=== PATIENT | male | born 1965 | race Two or more races ===

== ENCOUNTER 2025-11-07 23:51 | Emergency (ER) | payer BC, OTHER ==
[~2025-11-07] VITALS: Ht 177.8 cm; Wt 77.2 kg
--- NOTE | 2025-11-08 00:01 | ED.PDOC ---
History of Present Illness HPI Comments 60-year-old male who came to ER via EMS for flank pains. Patient does have history of kidney stones. States he has been experiencing left flank pain since yesterday the progressively worsened in the past hour, radiating to her left lower quadrant. Noted to have nausea and episodes of diarrhea. Denies any d ysuria gross hematuria Chief Complaint: Flank Pain Time Seen by MD: 00:01 Reviewed Notes: Nurses Notes Allergies: Coded Allergies: NO KNOWN ALLERGIES (Unverified , 11/08/25) Information Source: Patient, Emergency Med Personnel Mode of Arrival: EMS Past Medical History PAST MEDICAL HISTORY: Kidney Stones Surgical History: Denies all surgeries Family History Family History: Reviewed,noncontributory to illness Social History Smoker: Non-Smoker Alcohol: Denies ETOH Use Drugs: Denies Drug Use Lives In: Home Was a procedure done? Was a procedure done?: No Differential Dx Considerations may include: Urinary tract infection, kidney stones, musculoskeletal pain, X-Ray, Labs, Meds, VS Vital Signs Date Time Temp Pulse Resp B/P (MAP) Pulse Ox O2 Delivery O2 Flow Rate FiO2 11/08/25 04:13 98.1 3 18 153/94 (113) 99 98.1 11/08/25 04:13 73 18 153/94 11/08/25 03:07 98.6 103 16 136/93 (107) 98 98.6 11/08/25 01:25 68 18 189/104 11/08/25 00:52 98.1 58 28 189/104 (132) 100 98.1 11/07/25 23:54 98.1 81 18 184/100 98 98.1 Lab Test 11/08/25 00:30 11/08/25 00:23 Range/Units Urine Color Light-orange Yellow Urine Clarity Turbid H Clear Urine pH 7.5 5.0-9.0 Urine Specific Elsie 1.022 1.001-1.035 Urine Protein 1+ H Negative Urine Ketones 1+ H Negative Urine Blood 3+ H Negative /uL Urine Nitrite Negative Negative Urine Bilirubin Negative Negative Urine Urobilinogen Normal Negative mg/dL Urine Leukocyte Esterase Negative Negative /uL Urine RBC 2115 0 - 3 /hpf Urine Microscopic WBC 1 0-3 /HPF Urine Squamous Epithelial Cells None seen <5 /hpf Urine Bacteria None seen None Seen /hpf Urine Mucus Few None Seen Urine Glucose Normal Normal mg/dL White Blood Count 11.0 H 4.4-10.8 10^3/uL Red Blood Count 5.72 4.5-5.90 10^6/uL Hemoglobin 16.2 13.5-17.5 g/dL Hematocrit 48.3 41.0-53.0 % Mean Corpuscular Volume 84.4 80.0-100.0 fL Mean Corpuscular Hemoglobin 28.3 28.0-32.0 pg Mean Corpuscular Hemoglobin Concent 33.6 32.0-36.0 g/dL Red Cell Distribution Width 13.3 11.8-14.3 % Platelet Count 255 140-450 10^3/uL Mean Platelet Volume 8.6 6.9-10.8 fL Neutrophils (%) (Auto) 80.2 H 37.0-80.0 % Lymphocytes (%) (Auto) 16.0 10.0-50.0 % Monocytes (%) (Auto) 3.5 0.0-12.0 % Eosinophils (%) (Auto) 0.1 0.0-7.0 % Basophils (%) (Auto) 0.2 0.0-2.0 % Neutrophils # (Auto) 8.8 H 1.6-8.6 10 ^3/uL Lymphocytes # (Auto) 1.8 0.4-5.4 10 ^3/uL Monocytes # (Auto) 0.4 0-1.3 10 ^3/uL Eosinophils # (Auto) 0 0-0.8 10 ^3/uL Basophils # (Auto) 0 0-0.2 10 ^3/uL Nucleated Red Blood Cells 0.1 % Sodium Level 144 136-145 mmol/L Potassium Level 3.1 L 3.5-5.1 mmol/L Chloride Level 107 98-107 mmol/L Carbon Dioxide Level 24 20-31 mmol/L Anion Gap 13 5-15 Blood Urea Nitrogen 10 9-23 mg/dL Creatinine 1.18 0.700-1.30 mg/dL Glomerular Filtration Rate Calc 72 >90 mL/min BUN/Creatinine Ratio 8.5 L 10.0-20.0 Serum Glucose 112 H 74-106 mg/dL Calcium Level 9.9 8.7-10.4 mg/dL Current Medications Medications (Trade) Dose Ordered Sig/Regla Route Start Time Stop Time Status Last Admin Ketorolac Tromethamine (Toradol Injection) 30 mg ONCE ONCE IV 11/08/25 00:00 11/08/25 00:01 DC 11/08/25 01:25 Morphine Sulfate 4 mg ONCE ONCE IV 11/08/25 00:00 11/08/25 00:01 DC 11/08/25 01:25 Potassium Chloride (Klor-Con Tablet) 40 meq ONCE ONCE PO 11/08/25 03:00 11/08/25 03:07 DC 11/08/25 04:13 COMPUTERIZED TOMOGRAPHY ABDOMEN AND PELVIS WITHOUT CONTRAST REASON FOR EXAM: Flank Pain COMPARISON: None TECHNIQUE: Spiral scans were acquired from the diaphragm to the symphysis pubis without intravenous contrast administration. 2-D coronal and sagittal reformatted images were provided. Radiation optimization: All CT scans at this facility use at least one of these dose optimization techniques: Automated exposure control mA and/or kV adjustment per patient size (includes targeted exams where dose is matched to clinical indication) or iterative reconstruction. RADIATION DOSE: CTDI: 16.7 mGy DLP: 1021.45 mGy-cm FINDINGS: The visualized lung bases are grossly clear. There is no pleural effusion. There is no pericardial effusion. The spleen is not enlarged. The liver is normal in size and contour. No calcified gallstone is identified. Unenhanced appearance of the pancreas is grossly unremarkable. The adrenal glands appear normal. The kidneys are similar in size. There is mild nonspecific left perinephric stranding. There is mild left hydronephrosis. There is a 3 mm calculus in the proximal left ureter. There is mild left periureteral stranding. The urinary bladder is decompressed and is not well evaluated. Metallic streak artifact from a belt buckle degrades evaluation of the pelvic organs. The prostate and seminal vesicles appear grossly unremarkable. No free fluid is identified in the abdomen or pelvis within the limitations of artifact. The colonic stool burden is small. The appendix is normal. There is no distention of the small bowel. No acute osseous abnormality is identified. There are degenerative changes in the lower lumbar spine. IMPRESSION: There is a 3 mm calculus in the proximal left ureter causing mild left hydronephrosis. Time of 1ST Reevaluation: 23:58 Reevaluation 1ST: Unchanged Patient Education/Counseling: Need For Follow Up Family Education/Counseling: No Family Present SEPSIS Sepsis Screen Physician Orders Ct Ab Pel Wo Con-No Oral Or Iv (11/07/25 23:58) Vital Signs Date Time Temp Pulse Resp B/P (MAP) Pulse Ox O2 Delivery O2 Flow Rate FiO2 11/08/25 04:13 98.1 3 18 153/94 (113) 99 98.1 11/08/25 04:13 73 18 153/94 11/08/25 03:07 98.6 103 16 136/93 (107) 98 98.6 11/08/25 01:25 68 18 189/104 11/08/25 00:52 98.1 58 28 189/104 (132) 100 98.1 11/07/25 23:54 98.1 81 18 184/100 98 98.1 Laboratory Tests Test 11/08/25 00:23 White Blood Count 11.0 10^3/uL (4.4-10.8) H Medications Medications Dose Ordered Sig/Regla Route Start Time Stop Time Status Last Admin Dose Admin Ketorolac Tromethamine 30 mg ONCE ONCE IV 11/08/25 00:00 11/08/25 00:01 DC 11/08/25 01:25 Morphine Sulfate 4 mg ONCE ONCE IV 11/08/25 00:00 11/08/25 00:01 DC 11/08/25 01:25 Potassium Chloride 40 meq ONCE ONCE PO 11/08/25 03:00 11/08/25 03:07 DC 11/08/25 04:13 Departure 1 Departure Time of Disposition: 04:18 Impression: Primary Impression: Kidney stone on right side Disposition: 01 HOME / SELF CARE / HOMELESS Condition: Stable Additional Instructions: ED DISCHARGE INSTRUCTIONS Instructions: Please read all instructions provided in this packet carefully. Although you have been discharged from the Emergency Department, this does not mean that you have a "clean bill of health". No definitive diagnosis for your symptoms has been made today. It is possible that you are in the process of developing a serious illness. This is why you must return to the ED without fail if any new or worsening symptoms (especially if your symptoms include chest pain, trouble breathing, abdominal pain, fever, headache, confusion, trouble seeing, or trouble walking) It is also very important that you see a primary care provider (PCP) within the next 3 days to follow up. If you are unable to get an appointment, return to the ED for re-evaluation. Kidney Stone: Care Instructions Kidney stones are formed when salts, minerals, and other substances normally found in the urine clump together. They can be as small as grains of sand or, rarely, as large as golf balls. While the stone is traveling through the ureter, which is the tube that carries urine from the kidney to the bladder, you will probably feel pain. The pain may be mild or very severe. You may also have some blood in your urine. As soon as the stone reaches the bladder, any intense pain should go away. If a stone is too large to pass on its own, you may need a medical procedure to help you pass the stone. The doctor has checked you carefully, but problems can develop later. If you notice any problems or new symptoms, get medical treatment right away . Follow-up care is a centeno part of your treatment and safety. Be sure to make and go to all appointments, and call your doctor if you are having problems. It's also a good idea to know your test results and keep a list of the medicines you take. How can you care for yourself at home? Drink plenty of fluids. If you have kidney, heart, or liver disease and have to limit fluids, talk with your doctor before you increase the amount of fluids you drink. Be safe with medicines. Read and follow all instructions on the label. If you are not taking a prescription pain medicine, ask your doctor if you can take an lluo-sih-wpmtwaf medicine. Nonsteroidal anti-inflammatory drugs (NSAIDs), such as ibuprofen (Advil, Motrin), may help with the pain. If the doctor gave you a prescription medicine for pain, take it as prescribed. Store your prescription pain medicines where no one else can get to them. When you are done using them, dispose of them quickly and safely. Your local pharmacy or hospital may have a drop-off site. Your doctor may ask you to strain your urine so that you can collect your kidney stone when it passes. You can use a kitchen strainer or a tea strainer to catch the stone. Store it in a plastic bag until you see your doctor again. Preventing future kidney stones Some changes in your diet may help prevent kidney stones. Depending on the cause of your stones, your doctor may recommend that you: Drink plenty of fluids. If you have kidney, heart, or liver disease and have to limit fluids, talk with your doctor before you increase the amount of fluids you drink. Try to drink mostly water. Limit grapefruit juice and sugar-sweetened beverages like soda. Do not take more than the recommended daily dose of vitamins C and D. Avoid antacids such as Maalox, Mylanta, or Tums. Limit the amount of salt (sodium) in your diet. Eat a variety of healthy foods. Include plenty of fruits and vegetables. You may need to limit animal protein for certain types of kidney stones. If yo u're worried about getting enough protein, try replacing animal protein sources with plant-based sources like dried peas and lentils. Limit foods that are high in a substance called oxalate, which can cause kidney stones. These foods include dark green vegetables, rhubarb, chocolate, wheat bran, nuts, cranberries, and beans. When should you call for help? Contact your doctor now or seek immediate medical care if: You cannot keep down fluids. Your pain gets worse. You have a fever or chills. You have new or worse pain in your back just below your rib cage (the flank area). You have new or more blood in your urine. You have new or worse pain or burning when you urinate. You have new or worse trouble urinating. Watch closely for changes in your health, and be sure to contact your doctor if: You do not get better as expected. Credits for Kidney Stone: Care Instructions Current as of: February 19, 2025 Author: [facility] Staff Clinical Review Board All [employer] education is reviewed by a team that includes physicians, nurses, advanced practitioners, registered dieticians, and other healthcare professionals. e-Prescriptions Tamsulosin Hcl (Flomax) 0.4 Mg Cap 1 CAP PO DAILY for 7 Days, #7 CAP 11 Refills Prov: CIARAN VILLALOBOS MD 11/08/25 Ketorolac Tromethamine (Ketorolac Tromethamine) 10 Mg Tab 1 TAB PO TID, #15 TAB Prov: CIARAN VILLALOBOS MD 11/08/25 Acetaminophen (Acetaminophen) 500 Mg Tab 1000 MG PO TIDPRN PRN for 5 Days, #30 TAB Prov: CIARAN VILLALOBOS MD 11/08/25 Comments Patient was offered admission for further treatment, observation and evaluation. Discussed risks, benefits and return precautions with the patient. The patient is declined admission and is requesting to be discharged home to follow up with the primary care provider as an outpatient. Critical Care Note Critical Care Time?: No Stability Stability form required: No Heart Score Heart Score: Heart Score Response (Comments) Value History N/A 0 EKG N/A 0 Age N/A 0 Risk Factors N/A 0 Troponin N/A 0 Total 0 I personally scribed for CIARAN VILLALOBOS MD ([email or web address]) on 11/08/25 at 00:01. Electronically submitted by Alonso Guardado ([email or web address]). I personally scribed for CIARAN VILLALOBOS MD ([email or web address]) on 11/08/25 at 03:34. Electronically submitted by Alonso Guardado ([email or web address]). CIARAN VILLALOBOS MD Nov 08, 2025 00:01
[2025-11-08 00:50] LABS: Hematocrit 48.3 % (41.0-53.0); Hemoglobin 16.2 g/dL (13.5-17.5); Mean Corpuscular Hemoglobin 28.3 pg (28.0-32.0); Mean Corpuscular Volume 84.4 fL (80.0-100.0); Nucleated Red Blood Cells % 0.1 %
[2025-11-08 01:01] LABS: Chloride 107 mmol/L (98-107); Sodium 144 mmol/L (136-145)
[2025-11-08 01:02] LABS: Anion Gap 13 (5-15); Carbon Dioxide 24 mmol/L (20-31)
[2025-11-08 01:03] LABS: Calcium 9.9 mg/dL (8.7-10.4); Potassium 3.1 mmol/L (3.5-5.1)
[2025-11-08 01:07] LABS: BUN/Creatinine Ratio 8.5 (10.0-20.0); Blood Urea Nitrogen 10 mg/dL (9-23)
[2025-11-08 01:17] LABS: Glucose 112 mg/dL (74-106)
[2025-11-08] MEDS: KETOROLAC TROMETH 30 MG/ML 1ML VIAL IV ONE (01:25)
[2025-11-08] MEDS: MORPHINE SULFATE 4 MG/ML SYR/VIAL ONE (01:25)
[2025-11-08] MEDS: MORPHINE SULFATE INJ 2 MG/ml SYRG IV ONE (01:25)
--- NOTE | 2025-11-08 02:42 | DVH ---
COMPUTERIZED TOMOGRAPHY ABDOMEN AND PELVIS WITHOUT CONTRAST REASON FOR EXAM: Flank Pain COMPARISON: None TECHNIQUE: Spiral scans were acquired from the diaphragm to the symphysis pubis without intravenous contrast administration. 2-D coronal and sagittal reformatted images were provided. Radiation optimization: All CT scans at this facility use at least one of these dose optimization techniques: Automated exposure control mA and/or kV adjustment per patient size (includes targeted exams where dose is matched to clinical indication) or iterative reconstruction. RADIATION DOSE: CTDI: 16.7 mGy DLP: 1021.45 mGy-cm FINDINGS: The visualized lung bases are grossly clear. There is no pleural effusion. There is no pericardial effusion. The spleen is not enlarged. The liver is normal in size and contour. No calcified gallstone is identified. Unenhanced appearance of the pancreas is grossly unremarkable. The adrenal glands appear normal. The kidneys are similar in size. There is mild nonspecific left perinephric stranding. There is mild left hydronephrosis. There is a 3 mm calculus in the proximal left ureter. There is mild left periureteral stranding. The urinary bladder is decompressed and is not well evaluated. Metallic streak artifact from a belt buckle degrades evaluation of the pelvic organs. The prostate and seminal vesicles appear grossly unremarkable. No free fluid is identified in the abdomen or pelvis within the limitations of artifact. The colonic stool burden is small. The appendix is normal. There is no distention of the small bowel. No acute osseous abnormality is identified. There are degenerative changes in the lower lumbar spine. IMPRESSION: There is a 3 mm calculus in the proximal left ureter causing mild left hydronephrosis.
[2025-11-08 03:11] LABS: Urine Protein, UAD 1+ (Negative)
[2025-11-08 04:13] VITALS: BP 153/94; RESP 18; TEMP 98.1; O2SAT 99
[2025-11-08] MEDS: POTASSIUM CHL 20 Meq TABLET PO ONE (04:13)
[2025-11-08] MEDS ORDERED: ACET500T58 PO (04:23)
[2025-11-08] MEDS ORDERED: TAMS-35 PO (04:23)
[2025-11-08] MEDS ORDERED: KETO10TA PO (04:23)
[2025-11-08] MEDS: ACETAMINOPHEN 500 MG TAB or CAP PO ONE (04:41)
[2025-11-08 04:47] VITALS: PULSE 83
== END 2025-11-08 04:47 | disposition home or self-care (01) ==
LOC: ER 23:51 → EDBD 23:51 → ER 11-08 04:47
DX: N13.2 Hydronephrosis with renal and ureteral calculous obstruction (principal); Z87.442 Personal history of urinary calculi
CPT/HCPCS: 36415; 74176; 80048; 81001; 85025; 96374; 96375; 99285; J1885; J2270